=== PATIENT | female | born 1990 | race Two or more races ===

== ENCOUNTER 2020-10-31 15:47 | Observation (INO) | payer BC, OTHER ==
[~2020-10-31] VITALS: Ht 170.2 cm; Wt 65.8 kg
[2020-10-31] MEDS ORDERED: SODIUM CHLORIDE 0.9% 1,000 ML IV ONE (16:00)
[2020-10-31 16:02] VITALS: BP 114/73
[2020-10-31 16:13] LABS: Urine Bacteria NONE SEEN /hpf (None Seen); Urine Blood Negative /uL (Negative); Urine Mucus FEW (None Seen); Urine Specific Gravity 1.021 (1.001-1.035); Urine WBC 2 /hpf (0 - 5)
[2020-10-31 16:30] LABS: Alcohol, Urine < 3.0 mg/dL (0-10); Amphetamine Screen, Urine NEGATIVE (NEGATIVE); Barbiturate Scree,Urine NEGATIVE (NEGATIVE); Benzodiazephine Screen, Urine NEGATIVE (NEGATIVE); Cannabinoid Screen, Urine NEGATIVE (NEGATIVE); Cocaine Screen, Urine NEGATIVE (NEGATIVE); Opiate Scree,Urine NEGATIVE (NEGATIVE); Phencyclidine Screen, Urine NEGATIVE (NEGATIVE)
== END 2020-10-31 17:30 | disposition home or self-care (01) ==
LOC: ER 15:47 → LDRP 16:08 → ER 16:15 → LDRP 16:20
PROVIDERS: ADMIT Specialist; ATTEND Specialist
DX: O26.892 Other specified pregnancy related conditions, second trimester (principal); R10.9 Unspecified abdominal pain; R10.2 Pelvic and perineal pain; Z3A.20 20 weeks gestation of pregnancy; Z79.899 Other long term (current) drug therapy
CPT/HCPCS: 59025; 76805; 80307; 81001; 81002; 99284; G0378

== ENCOUNTER 2020-12-26 16:10 | Observation (INO) | payer BC ==
[2020-12-26] MEDS ORDERED: LACTATED RINGER'S 1,000 ML IV ONE (17:00)
[2020-12-26] MEDS: TERBUTALINE SULFATE 1 MG/ML 1ML VIAL SC SCH ×2 (17:00→18:49)
[2020-12-26] MEDS ORDERED: NIFEdipine 10 MG CAP PO ONE (19:00)
[2020-12-26] MEDS ORDERED: NIF10C GT (20:26)
[2020-12-26] MEDS ORDERED: PREN-96 PO (20:27)
== END 2020-12-26 20:51 | disposition home or self-care (01) ==
LOC: LDRP 16:10
PROVIDERS: ADMIT Obstetrics & Gynecology; ATTEND Obstetrics & Gynecology
DX: O60.03 Preterm labor without delivery, third trimester (principal); O26.893 Other specified pregnancy related conditions, third trimester; H53.8 Other visual disturbances; Z3A.28 28 weeks gestation of pregnancy
CPT/HCPCS: 59025; 76815; 81002; 94760; 96360; 96361; 96372; G0378; G0379; J3105

== ENCOUNTER 2020-12-28 10:10 | Observation (INO) | payer BC ==
[~2020-12-28 10:10] MED LIST: NIF10C GT; PREN-96 PO
== END 2020-12-28 12:20 | disposition home or self-care (01) ==
LOC: LDRP 10:10
PROVIDERS: ADMIT Obstetrics & Gynecology; ATTEND Obstetrics & Gynecology
DX: O60.03 Preterm labor without delivery, third trimester (principal); O40.3XX0 Polyhydramnios, third trimester, not applicable or unspecified; O99.353 Diseases of the nervous system complicating pregnancy, third trimester; G43.909 Migraine, unspecified, not intractable, without status migrainosus; Z3A.28 28 weeks gestation of pregnancy
CPT/HCPCS: 59025; 76818; 81002; 94760; G0378

== ENCOUNTER 2021-01-01 10:52 | Observation (INO) | payer BC ==
[~2021-01-01] VITALS: Ht 170.2 cm; Wt 73.9 kg
[2021-01-01] MEDS ORDERED: TERBUTALINE SULFATE 1 MG/ML 1ML VIAL SC SCH (16:30)
== END 2021-01-01 17:25 | disposition home or self-care (01) ==
LOC: LDRP 14:56
PROVIDERS: ADMIT Obstetrics & Gynecology; ATTEND Obstetrics & Gynecology
DX: O60.03 Preterm labor without delivery, third trimester (principal); O26.893 Other specified pregnancy related conditions, third trimester; N89.8 Other specified noninflammatory disorders of vagina; O62.9 Abnormality of forces of labor, unspecified; Z3A.28 28 weeks gestation of pregnancy
CPT/HCPCS: 59025; 76818; 81002; 94760; 96372; G0378; J3105

== ENCOUNTER 2021-01-08 07:44 | Observation (INO) | payer BC | END 2021-01-08 08:41 | disposition home or self-care (01) | LOC: LDRP 07:44 | PROVIDERS: ADMIT Obstetrics & Gynecology; ATTEND Obstetrics & Gynecology | DX: O60.03 Preterm labor without delivery, third trimester (principal); Z3A.29 29 weeks gestation of pregnancy | CPT/HCPCS: 59025; 81002; 94760; G0378 ==

== ENCOUNTER 2021-01-15 08:10 | Observation (INO) | payer BC | END 2021-01-15 09:11 | disposition home or self-care (01) | LOC: LDRP 08:10 | PROVIDERS: ADMIT Obstetrics & Gynecology; ATTEND Obstetrics & Gynecology | DX: O60.03 Preterm labor without delivery, third trimester (principal); Z3A.30 30 weeks gestation of pregnancy | CPT/HCPCS: 59025; 81002; 94760; G0378; G0379 ==

== ENCOUNTER 2021-01-22 09:06 | Observation (INO) | payer BC | END 2021-01-22 09:44 | disposition home or self-care (01) | LOC: LDRP 09:06 | PROVIDERS: ADMIT Obstetrics & Gynecology; ATTEND Obstetrics & Gynecology | DX: O60.03 Preterm labor without delivery, third trimester (principal); Z3A.31 31 weeks gestation of pregnancy | CPT/HCPCS: 59025; 81002; 94760; G0378; G0379 ==

== ENCOUNTER 2021-01-29 09:20 | Observation (INO) | payer BC | END 2021-01-29 10:40 | disposition home or self-care (01) | LOC: LDRP 09:20 | PROVIDERS: ADMIT Obstetrics & Gynecology; ATTEND Obstetrics & Gynecology | DX: O60.03 Preterm labor without delivery, third trimester (principal); Z3A.32 32 weeks gestation of pregnancy | CPT/HCPCS: 59025; 81002; G0378 ==

== ENCOUNTER 2021-02-06 09:12 | Observation (INO) | payer BC ==
[~2021-02-06] VITALS: Ht 170.2 cm; Wt 77.1 kg
[2021-02-06] MEDS ORDERED: TERBUTALINE SULFATE 1 MG/ML 1ML VIAL SC SCH (10:55)
== END 2021-02-06 11:47 | disposition home or self-care (01) ==
LOC: LDRP 09:12
PROVIDERS: ADMIT Obstetrics & Gynecology; ATTEND Obstetrics & Gynecology
DX: O60.03 Preterm labor without delivery, third trimester (principal); Z3A.34 34 weeks gestation of pregnancy
CPT/HCPCS: 59025; 81002; 94760; 96372; G0378; J3105

== ENCOUNTER 2021-02-12 12:12 | Observation (INO) | payer BC | END 2021-02-12 13:30 | disposition home or self-care (01) | LOC: LDRP 12:12 | PROVIDERS: ADMIT Obstetrics & Gynecology; ATTEND Obstetrics & Gynecology | DX: O60.03 Preterm labor without delivery, third trimester (principal); O62.9 Abnormality of forces of labor, unspecified; Z3A.34 34 weeks gestation of pregnancy | CPT/HCPCS: 59025; 81002; G0378 ==

== ENCOUNTER 2021-02-19 11:17 | Observation (INO) | payer BC | END 2021-02-19 13:03 | disposition home or self-care (01) | LOC: LDRP 12:03 | PROVIDERS: ADMIT Obstetrics & Gynecology; ATTEND Obstetrics & Gynecology | DX: O60.03 Preterm labor without delivery, third trimester (principal); Z3A.35 35 weeks gestation of pregnancy | CPT/HCPCS: 59025; 81002; 94760; G0378; G0379 ==

== ENCOUNTER 2021-02-26 11:35 | Observation (INO) | payer BC | END 2021-02-26 12:30 | disposition home or self-care (01) | LOC: LDRP 11:35 | PROVIDERS: ADMIT Obstetrics & Gynecology; ATTEND Obstetrics & Gynecology | DX: O60.03 Preterm labor without delivery, third trimester (principal); O62.9 Abnormality of forces of labor, unspecified; Z3A.37 37 weeks gestation of pregnancy | CPT/HCPCS: 59025; 81002; 94760; G0378; G0379 ==

== ENCOUNTER 2021-03-20 08:08 | Observation (INO) | payer BC | END 2021-03-20 09:45 | disposition home or self-care (01) | LOC: LDRP 08:08 | PROVIDERS: ADMIT Obstetrics & Gynecology; ATTEND Obstetrics & Gynecology | DX: O48.0 Post-term pregnancy (principal); Z3A.40 40 weeks gestation of pregnancy | CPT/HCPCS: 59025; 76818; 81002; G0378; G0379 ==

== ENCOUNTER 2021-03-21 15:06 | Observation (INO) | payer BC ==
[~2021-03-21] VITALS: Ht 170.2 cm; Wt 84.8 kg
[~2021-03-21 15:06] MED LIST changes: -NIF10C GT
== END 2021-03-21 17:15 | disposition home or self-care (01) ==
LOC: LDRP 15:06
PROVIDERS: ADMIT Obstetrics & Gynecology; ATTEND Obstetrics & Gynecology
DX: O62.9 Abnormality of forces of labor, unspecified (principal); Z3A.40 40 weeks gestation of pregnancy
CPT/HCPCS: 59025; 76818; 81002; 94760; G0378; G0379

== ENCOUNTER 2021-03-22 01:03 | Inpatient (IN) | payer BC ==
[~2021-03-22] VITALS: Ht 170.2 cm; Wt 84.8 kg
[2021-03-22] MEDS ORDERED: PROMETHAZINE HCL 25 MG/ML 1ML IV PRN (03:00)
[2021-03-22] MEDS ORDERED: BUTORPHANOL TARTRATE 2 MG/1 ML VIAL IV PRN ×2 (03:00)
[2021-03-22] MEDS ORDERED: LIDOCAINE 2%HCL (LOCAL ANESTH.) INJ 20ML MDV IJ PRN (03:00)
[2021-03-22] MEDS: LACTATED RINGER'S 1,000 ML IV SCH ×3 (03:19→12:27)
[2021-03-22 03:56] LABS: Basophils # (auto) 0 10 ^3/uL (0-0.2); Eosinophils # (auto) 0 10 ^3/uL (0-0.8); Eosinophils % (auto) 0.4 % (0.0-7.0); Monocytes # (auto) 0.7 10 ^3/uL (0-1.3)
[2021-03-22 04:00] LABS: Basophils % (auto) 0.2 % (0.0-2.0); Hematocrit 32.2 % (36.0-46.0); Hemoglobin 10.8 g/dL (12.2-16.2); Lymphocytes # (auto) 1.7 10 ^3/uL (0.4-5.4); Lymphocytes % (auto) 18.9 % (10.0-50.0); Mean Corpuscular Hemoglobin 26.7 pg (28.0-32.0); Mean Corpuscular Hgb Conc. 33.6 g/dL (32.0-36.0); Mean Corpuscular Volume 79.3 fL (80.0-100.0); Monocytes % (auto) 7.7 % (0.0-12.0); Neutrophils # (auto) 6.4 10 ^3/uL (1.6-8.6); Neutrophils % (auto) 72.8 % (37.0-80.0); Red Blood Cells 4.06 10^6/uL (4.0-5.20); Red Cell Distribution Width 15.9 % (11.8-14.3); White Blood Cell 8.9 10^3/uL (4.4-10.8)
[2021-03-22 04:07] LABS: Urine Bacteria NONE SEEN /hpf (None Seen); Urine Blood 2+ /uL (Negative); Urine Mucus FEW (None Seen); Urine Specific Gravity 1.024 (1.001-1.035); Urine WBC 142 /hpf (0 - 5)
[2021-03-22 04:17] LABS: Alcohol, Urine < 3.0 mg/dL (0-10); Amphetamine Screen, Urine NEGATIVE (NEGATIVE); Barbiturate Scree,Urine NEGATIVE (NEGATIVE); Benzodiazephine Screen, Urine NEGATIVE (NEGATIVE); Cannabinoid Screen, Urine NEGATIVE (NEGATIVE); Cocaine Screen, Urine NEGATIVE (NEGATIVE); Opiate Scree,Urine NEGATIVE (NEGATIVE); Phencyclidine Screen, Urine NEGATIVE (NEGATIVE)
[2021-03-22 04:19] LABS: Albumin 2.2 g/dL (3.4-5.0); Calcium 8.7 mg/dL (8.5-10.1); Potassium 3.9 mmol/L (3.5-5.1)
[2021-03-22 04:22] LABS: BUN/Creatinine Ratio 29.1
[2021-03-22 04:23] LABS: INR 0.93 (0.9-1.15); Partial Thromboplastin Time 25.7 sec (23.6-33.0)
[2021-03-22 04:25] LABS: Bilirubin, Total 0.1 mg/dL (0.2-1.0); Total Protein 5.8 g/dL (6.4-8.2)
[2021-03-22] MEDS ORDERED: LACT. RINGERS/OXYTOCIN 20UNITS 500 ML IV ONE ×2 (06:15→06:45)
[2021-03-22] MEDS: PHISODERM TOP SOLN 240ML BTL TOP PRN (06:34)
[2021-03-22] MEDS: WITCH HAZEL-GLYCERIN PAD TOP PRN (06:34)
[2021-03-22] MEDS: DERMOPLAST 60ML BOTTLE TOP PRN (06:35)
[2021-03-22] MEDS ORDERED: TERBUTALINE SULFATE 1 MG/ML 1ML VIAL SC PRN (10:00)
[2021-03-22] MEDS ORDERED: LACT. RINGERS/OXYTOCIN 20UNITS 1,000 ML IV SCH (10:00)
[2021-03-22] MEDS ORDERED: ONDANSETRON ODT 4 MG TAB PO PRN (16:15)
[2021-03-22] MEDS ORDERED: IBUPROFEN 600 MG TAB PO PRN (16:15)
[2021-03-22] MEDS: IBUPROFEN 600 MG TAB PO SCH ×2 (17:49→23:47)
[2021-03-22 19:00] VITALS: BP 129/82
[2021-03-22] MEDS: ACETAMINOPHEN 325 MG TAB PO PRN ×2 (19:41→23:48)
[2021-03-22] MEDS ORDERED: AMMONIA 0.33 ML INHALANT IN ONE (19:45)
[2021-03-22] MEDS: DOCUSATE SOD 100 MG CAP PO SCH (22:50)
[2021-03-22 23:00] VITALS: BP 118/59
[2021-03-23 03:00] VITALS: BP 121/58
[2021-03-23] MEDS: ACETAMINOPHEN 325 MG TAB PO PRN ×2 (03:38→15:13)
[2021-03-23 05:11] LABS: RPR Non Reactive (Non Reactive)
[2021-03-23] MEDS: IBUPROFEN 600 MG TAB PO SCH ×3 (05:37→17:32)
[2021-03-23 07:26] VITALS: BP 124/64
[2021-03-23] MEDS: HYDROcodone-ACET 10/325MG TAB PO PRN ×3 (08:29→22:14)
[2021-03-23 11:10] VITALS: BP 112/74
[2021-03-23 15:06] VITALS: BP 102/56
[2021-03-23] MEDS: WITCH HAZEL-GLYCERIN PAD TOP PRN (17:32)
[2021-03-23] MEDS: DERMOPLAST 60ML BOTTLE TOP PRN (17:32)
[2021-03-23 19:00] VITALS: BP 118/64
[2021-03-23] MEDS: DOCUSATE SOD 100 MG CAP PO SCH (22:14)
[2021-03-23 23:00] VITALS: BP 112/62
[2021-03-24] MEDS: IBUPROFEN 600 MG TAB PO SCH ×2 (00:09→06:00)
[2021-03-24 03:00] VITALS: BP 116/70
[2021-03-24 06:10] VITALS: BP 108/66
[2021-03-24 06:30] VITALS: BP 108/66
[2021-03-24] MEDS ORDERED: HYDR-4833 PO (08:29)
[2021-03-24] MEDS ORDERED: TETANUS-DIPTH-ACEL PERTUSSIS 0.5ML SYR Tdap IM ONE (09:00)
[2021-03-24] MEDS: PHISODERM TOP SOLN 240ML BTL TOP PRN (10:04)
[2021-03-24] MEDS: WITCH HAZEL-GLYCERIN PAD TOP PRN (10:05)
[2021-03-24] MEDS: DERMOPLAST 60ML BOTTLE TOP PRN (10:05)
[2021-03-24 10:48] VITALS: BP 118/55
== END 2021-03-24 10:55 | disposition home or self-care (01) | DRG 807 ==
LOC: LDRP 01:03 → OBSVTOIN 02:39 → LDRP 03:45
PROVIDERS: ADMIT Obstetrics & Gynecology Obstetrics; ATTEND Obstetrics & Gynecology Obstetrics
PROC: 10E0XZZ Delivery of Products of Conception, External Approach (ICD-10-PCS; principal; 2021-03-22)
PROC: 0KQM0ZZ Repair Perineum Muscle, Open Approach (ICD-10-PCS; 2021-03-22)
PROC: 0W8NXZZ Division of Female Perineum, External Approach (ICD-10-PCS; 2021-03-22)
DX: O48.0 Post-term pregnancy (principal); Z37.0 Single live birth; O76 Abnormality in fetal heart rate and rhythm complicating labor and delivery; Z20.822 Contact with and (suspected) exposure to COVID-19; O69.1XX0 Labor and delivery complicated by cord around neck, with compression, not applicable or unspecified; O70.1 Second degree perineal laceration during delivery; Z3A.40 40 weeks gestation of pregnancy
CPT/HCPCS: 36415; 59025; 59409; 80053; 80307; 81001; 81002; 85025; 85610; 85730; 86592; 86850; 86900; 86901; 87426; 90715; 94760; 96360; 96361; 96365; 96366; 96374; 96375; G0378; J2590